=== PATIENT | male | born 1965 | race Caucasian/White ===

== ENCOUNTER 2016-06-22 17:35 | Emergency (ER) | payer BC ==
[2016-06-22 18:28] VITALS: BP 118/72
--- NOTE | 2016-06-22 19:33 | UC ---
Throat Pain/Nasal Ramon HPI - HPI Summary HPI Summary: 50 year old male with complaints of sinus pain and pressure, Ear pain and popping, nasal congestion, post nasal drip. States cold symptoms 10 days ago and improved. 5 days ago symptoms returned worse than before and are progressively getting worse. States fever on an off a few days ago. Denies cough, chest pain or difficulty breathing - History of Current Complaint Chief Complaint: UCGeneralIllness Stated Complaint: SORE THROAT FEVER Time Seen by Provider: 06/22/16 19:22 Hx Obtained From: Patient Onset/Duration: Gradual Onset, Lasting Days - 5, Worse Since - each day Severity: Moderate Cough: Nonproductive Associated Signs & Symptoms: Positive: Dysphagia, Sinus Discomfort, Nasal Discharge, Fever - has resolved. Negative: FB Sensation, Drooling, Wheezing, Hoarseness, Vomiting, Rash - Epiglottits Risk Factors Epiglottis Risk Factors: Negative - Allergies/Home Medications Allergies/Adverse Reactions: Allergies Allergy/AdvReac Type Severity Reaction Status Date / Time Codeine Allergy Severe Anaphylatic Verified 06/22/16 18:28 Shock environmental allergies Allergy Eyes Uncoded 06/22/16 18:28 Itchy/Swollen/Red/Watery PMH/Surg Hx/FS Hx/Imm Hx Previously Healthy: Yes Endocrine History Of: Denies: Diabetes Cardiovascular History Of: Denies: Hypertension, Pacemaker/ICD Respiratory History Of: Reports: Asthma - Surgical History Surgical History: None - Family History Known Family History: Positive: Respiratory Disease - mom Negative: Hypertension, Diabetes - Social History Occupation: Employed Full-time - [employer] Lives: With Family Alcohol Use: Rare Substance Use Type: None Smoking Status (MU): Former Smoker Type: Cigarettes, Cigars Amount Used/How Often: 5-10 CIGS PER DAY/ 2 cigars per day Have You Smoked in the Last Year: Yes Household Exposure Type: Cigarettes Cessation Counseling: Patient Advised to Stop - he states he has quit 30 days - Immunization History Most Recent Influenza Vaccination: no Review of Systems Constitutional: Fever, Chills Skin: Negative Eyes: Negative ENT: Sore Throat, Ear Ache, Nasal Discharge Respiratory: Cough Cardiovascular: Negative Gastrointestinal: Negative Genitourinary: Negative Motor: Negative Neurovascular: Negative Musculoskeletal: Negative Neurological: Headache - sinus Psychological: Negative All Other Systems Reviewed And Are Negative: Yes Physical Exam Triage Information Reviewed: Yes Appearance: No Pain Distress, Well-Nourished, Ill-Appearing - mildly Vital Signs: Initial Vital Signs Temp 98.4 F 06/22/16 18:23 Pulse 78 06/22/16 18:23 Resp 16 06/22/16 18:23 BP 118/72 06/22/16 18:23 Pulse Ox 98 06/22/16 18:23 Vital Signs Reviewed: Yes Eyes: Positive: Conjunctiva Clear. Negative: Discharge ENT: Positive: Hearing grossly normal, Pharyngeal erythema - mild with post nasal mucus, Nasal congestion, TMs normal, Other: - maxillary sinus pressure with palpation. Negative: Nasal drainage Neck: Positive: Supple, Nontender, No Lymphadenopathy Respiratory: Positive: Lungs clear, Normal breath sounds. Negative: Crackles, Wheezing Cardiovascular: Positive: RRR, No Murmur Musculoskeletal: Positive: Strength Intact, ROM Intact Neurological: Positive: Alert, Muscle Tone Normal Psychological: Positive: Age Appropriate Behavior - pleasant and cooperative Skin: Negative: rashes, breakdown Throat Pain/Nasal Course/Dx - Differential Dx/Diagnosis Differential Diagnosis/HQI/PQRI: Pharyngitis, Sinusitis, URI Provider Diagnoses: Sinusitis Discharge - Discharge Plan Condition: Stable Disposition: HOME Prescriptions: Amoxicillin/Clavulanate TAB* [Augmentin TAB 875*] 875 mg PO BID #20 tab Patient Education Materials: Sinusitis (ED), Amoxicillin/Clavulanate Potassium (By mouth)
== END 2016-06-22 19:40 | disposition home or self-care (01) ==
LOC: UCCORT 17:35
DX: J32.9 Chronic sinusitis, unspecified (principal); Z87.891 Personal history of nicotine dependence; Z88.5 Allergy status to narcotic agent
CPT/HCPCS: 99212; G0463

== ENCOUNTER 2016-09-22 18:15 | Emergency (ER) | payer BC ==
[2016-09-22 18:27] VITALS: BP 123/68
--- NOTE | 2016-09-22 18:38 | UC ---
Respiratory Complaint HPI - HPI Summary HPI Summary: The patient comes in today for: 1. Sinus congestion, fever of 102, coughing: Onset: "last couple of days." Palliative/provocative: Nothing makes his symptoms better or worse. Quality: Pressure Region: Frontal and maxillary sinuses Severity: 8/10 this AM, but 5/10 now. Time: Constant. Associated symptoms: Cough: Productive of clear material. Rhinitis: clear to yellow. Upper tooth pain: None. * - History of Current Complaint Chief Complaint: UCRespiratory Stated Complaint: SINUSES Time Seen by Provider: 09/22/16 18:24 Hx Obtained From: Patient - Allergies/Home Medications Allergies/Adverse Reactions: Allergies Allergy/AdvReac Type Severity Reaction Status Date / Time Codeine AdvReac Intermediate Tachycardia Verified 09/22/16 18:27 environmental allergies Allergy Eyes Uncoded 06/22/16 18:28 Itchy/Swollen/Red/Watery PMH/Surg Hx/FS Hx/Imm Hx Previously Healthy: Yes Endocrine History Of: Denies: Diabetes, Thyroid Disease, Hyperthyroidism, Hypothyroidism, Dyslipidemia Cardiovascular History Of: Reports: Cardiac Disorders - [place] 2012 Denies: Hypertension, Pacemaker/ICD, Myocardial Infarction, Congestive Heart Failure, Atrial Fibrillation, Deep Vein Thrombosis, Bleeding Disorders Respiratory History Of: Reports: Asthma Denies: COPD, Bronchitis, Pneumonia, Pulmonary Embolism GI/ History Of: Denies: Gastroesophageal Reflux, Ulcer, Gastrointestinal Bleed, Gall Bladder Disease, Kidney Stones, Diverticulitis, Renal Disease, Urosepsis Neurological History Of: Reports: Migraine Denies: TIA, CVA, Dementia, Seizures Psychological History Of: Denies: Anxiety, Depression, Bipolar Disorder, Schizophrenia, Post Traumatic Stress Disorder Cancer History Of: Denies: Lung Cancer, Colorectal Cancer, Breast Cancer, Prostate Cancer, Cervical Cancer Other History Of: Negative For: HIV, Hepatitis B, Hepatitis C, Anticoagulant Therapy - Surgical History Surgical History: None - Family History Known Family History: Positive: Cardiac Disease, Respiratory Disease - mom Negative: Hypertension, Diabetes - Social History Occupation: Employed Full-time Alcohol Use: Rare Substance Use Type: None Smoking Status (MU): Former Smoker Type: Cigarettes, Cigars Amount Used/How Often: 5-10 CIGS PER DAY/ 2 cigars per day Length of Time of Smoking/Using Tobacco: 43 yrs Have You Smoked in the Last Year: Yes When Did the Patient Quit Smoking/Using Tobacco: 05/19 Household Exposure Type: Cigarettes - Immunization History Most Recent Influenza Vaccination: no Review of Systems Constitutional: Negative Skin: Negative Eyes: Negative ENT: Sore Throat, Nasal Discharge Respiratory: Cough Cardiovascular: Negative Gastrointestinal: Negative Genitourinary: Negative All Other Systems Reviewed And Are Negative: Yes Physical Exam Triage Information Reviewed: Yes Appearance: Well-Appearing, No Pain Distress, Well-Nourished Vital Signs: Initial Vital Signs Temp 99.1 F 09/22/16 18:21 Pulse 82 09/22/16 18:21 Resp 16 09/22/16 18:21 BP 123/68 09/22/16 18:21 Pulse Ox 99 09/22/16 18:21 Vital Signs Reviewed: Yes Eyes: Positive: Conjunctiva Clear. Negative: Discharge ENT: Positive: Hearing grossly normal, Other: - cerumen buildup in both ears. Sinus pressure did elicit discomfort.. Negative: Pharyngeal erythema, Nasal congestion, Nasal drainage Dental: Negative: Gross Decay/Caries @, Dental Fracture @ Neck: Positive: Supple, Nontender, No Lymphadenopathy. Negative: Nuchal Rigidity Respiratory: Positive: Lungs clear, No respiratory distress, No accessory muscle use. Negative: Crackles, Wheezing Cardiovascular: Positive: RRR, No Murmur Abdomen Description: Positive: Nontender, No Organomegaly, Soft. Negative: Distended, Guarding Musculoskeletal: Positive: Strength Intact, ROM Intact, No Edema Neurological: Positive: Alert, Muscle Tone Normal Psychological: Positive: Age Appropriate Behavior, Consolable Skin: Negative: rashes, breakdown UC Diagnostic Evaluation - Laboratory O2 Sat by Pulse Oximetry: 99 Respiratory Course/Dx - Differential Dx/Diagnosis Differential Diagnosis/HQI/PQRI: Bronchitis, Laryngitis, Sinusitis Provider Diagnoses: Sinusitis. Bronchitis. Asthma Discharge - Discharge Plan Condition: Stable Disposition: HOME Patient Education Materials: Asthma (ED) Referrals: Gissell Stone MD [Primary Care Provider] - 1 Week (Please see your primary care provider in about one to two weeks to see how well you are doing. If you get worse, please be seen sooner.)
== END 2016-09-22 19:08 | disposition home or self-care (01) ==
LOC: UCCORT 18:15
DX: J32.9 Chronic sinusitis, unspecified (principal); J45.909 Unspecified asthma, uncomplicated; I21.3 ST elevation (STEMI) myocardial infarction of unspecified site; G43.909 Migraine, unspecified, not intractable, without status migrainosus; Z88.5 Allergy status to narcotic agent; Z87.891 Personal history of nicotine dependence
CPT/HCPCS: 99212; G0463

== ENCOUNTER 2017-03-03 17:08 | Emergency (ER) | payer BC ==
[2017-03-03 17:27] VITALS: BP 112/76
--- NOTE | 2017-03-03 18:49 | UC ---
Skin Complaint HPI - HPI Summary HPI Summary: Lower abd rash. It is very itchy and irritated. There is some clear drainage. No redness and no fevers. 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 - History of Current Complaint Chief Complaint: UCSkin Time Seen by Provider: 03/03/17 18:39 Stated Complaint: OPEN WOUND ABDOMEN Hx Obtained From: Patient Onset/Duration: Lasting Weeks Skin Exposure Onset/Duration: Weeks Ago Timing: Constant Onset Severity: Mild Current Severity: Moderate Location: Discrete Character: Pruritus Aggravating Factor(s): Wet Conditions, Touch Alleviating Factor(s): Nothing Associated Signs & Symptoms: Positive: Drainage - clear.. Negative: Fever, Chills, Tenderness - Allergy/Home Medications Allergies/Adverse Reactions: Allergies Allergy/AdvReac Type Severity Reaction Status Date / Time Codeine AdvReac Intermediate Tachycardia Verified 03/03/17 17:27 environmental allergies Allergy Eyes Uncoded 03/03/17 17:27 Itchy/Swollen/Red/Watery Review of Systems Skin: Rash All Other Systems Reviewed And Are Negative: Yes PMH/Surg Hx/FS Hx/Imm Hx Previously Healthy: Yes Other History Of: Negative For: HIV, Hepatitis B, Hepatitis C, Anticoagulant Therapy - Surgical History Surgical History: None - Family History Known Family History: Positive: Cardiac Disease, Respiratory Disease - mom Negative: Hypertension, Diabetes - Social History Alcohol Use: Rare Substance Use Type: None Smoking Status (MU): Former Smoker Type: Cigarettes, Cigars Amount Used/How Often: 5-10 CIGS PER DAY/ 2 cigars per day Length of Time of Smoking/Using Tobacco: 43 yrs Have You Smoked in the Last Year: Yes When Did the Patient Quit Smoking/Using Tobacco: 05/19 Household Exposure Type: Cigarettes - Immunization History Most Recent Influenza Vaccination: no Physical Exam Triage Information Reviewed: Yes Appearance: Well-Appearing, No Pain Distress, Well-Nourished Vital Signs: Initial Vital Signs Temp 98.1 F 03/03/17 17:22 Pulse 77 03/03/17 17:22 Resp 18 03/03/17 17:22 BP 112/76 03/03/17 17:22 Pulse Ox 99 03/03/17 17:22 Vital Signs Reviewed: Yes Eyes: Positive: Conjunctiva Clear ENT: Positive: Normal ENT inspection Neck: Positive: Supple, Nontender, No Lymphadenopathy Respiratory: Positive: Chest non-tender, Lungs clear, Normal breath sounds, No respiratory distress, No accessory muscle use Cardiovascular: Positive: RRR, No Murmur, Pulses Normal, Brisk Capillary Refill Abdomen Description: Positive: Nontender, No Organomegaly, Soft Musculoskeletal: Positive: Strength Intact, ROM Intact, No Edema Neurological: Positive: Alert, Muscle Tone Normal. Negative: Fatigued Skin: Positive: rashes - just at the level of the belt is a pink salmon colored patch of macular papular clear drainage rash without streaking. Course/Dx - Diagnoses Provider Diagnoses: bell sensitivity. contact dermatitis. Discharge - Discharge Plan Condition: Good Disposition: HOME Prescriptions: Triamcinolone 0.5% OINT * 1 applic TOPICAL BID #15 tube Patient Education Materials: Contact Dermatitis (ED) Referrals: Gissell Stone MD [Primary Care Provider] - If Needed
== END 2017-03-03 18:54 | disposition home or self-care (01) ==
LOC: UCCORT 17:08
DX: L23.0 Allergic contact dermatitis due to metals (principal); Z88.5 Allergy status to narcotic agent; Z87.891 Personal history of nicotine dependence
CPT/HCPCS: 99212; G0463

== ENCOUNTER 2017-04-16 14:51 | Emergency (ER) | payer BC ==
[2017-04-16 15:56] VITALS: BP 125/77
--- NOTE | 2017-04-16 17:26 | UC ---
Respiratory Complaint HPI - HPI Summary HPI Summary: 51 y/o male presents to the urgent care c/o sore throat , nasal congestion with productive cough and REINA since yesterday. Pt reports he has Hx of Migraine REINA and he run out of his Imitrex. Pt states pain with swallowing is 8/10. He took Tylenol PO about 2 hrs ago. Pt denies fever, SOB, chest pain , abdominal pain, dizziness, N/V/D - History of Current Complaint Chief Complaint: UCHeadache Stated Complaint: CHEST CONGESTION, AND SORE THROAT Time Seen by Provider: 04/16/17 17:15 Hx Obtained From: Patient Onset/Duration: Gradual Onset, Lasting Days - 1 day, Still Present Timing: Constant Severity Initially: Mild Severity Currently: Moderate Pain Intensity: 8 - sore throat Pain Scale Used: 0-10 Numeric Character: Cough: Productive - yellowish Aggravating Factors: Nothing Alleviating Factors: OTC Meds Associated Signs And Symptoms: Positive: Nasal Congestion, Sinus Discomfort. Negative: Fever, Wheezing - Risk Factors Pulmonary Embolism Risk Factors: Negative Cardiac Risk Factors: Negative Pseudomonas Risk Factors: Negative Tuberculosis Risk Factors: Negative - Allergies/Home Medications Allergies/Adverse Reactions: Allergies Allergy/AdvReac Type Severity Reaction Status Date / Time Codeine AdvReac Intermediate Tachycardia Verified 04/16/17 15:57 environmental allergies Allergy Eyes Uncoded 04/16/17 15:57 Itchy/Swollen/Red/Watery PMH/Surg Hx/FS Hx/Imm Hx Previously Healthy: Yes Cardiovascular History: Myocardial Infarction Other History Of: Negative For: HIV, Hepatitis B, Hepatitis C, Anticoagulant Therapy - Surgical History Surgical History: None - Family History Known Family History: Positive: Cardiac Disease, Hypertension, Diabetes, Respiratory Disease - mom - Social History Occupation: Employed Full-time Lives: With Family Alcohol Use: None Substance Use Type: None Smoking Status (MU): Light Every Day Tobacco Smoker Type: Cigarettes, Cigars Amount Used/How Often: 5-10 CIGS PER DAY/ 2 cigars per day Length of Time of Smoking/Using Tobacco: 43 yrs Have You Smoked in the Last Year: Yes When Did the Patient Quit Smoking/Using Tobacco: 05/19 Household Exposure Type: Cigarettes - Immunization History Most Recent Influenza Vaccination: no Review of Systems Constitutional: Negative Skin: Negative Eyes: Negative ENT: Sore Throat, Nasal Discharge, Sinus Congestion Respiratory: Cough Cardiovascular: Negative Gastrointestinal: Negative Genitourinary: Negative Motor: Negative Neurovascular: Negative Musculoskeletal: Negative Neurological: Headache Psychological: Negative Is Patient Immunocompromised?: No All Other Systems Reviewed And Are Negative: Yes Physical Exam Triage Information Reviewed: Yes Vital Signs: Initial Vital Signs Temp 97.3 F 04/16/17 15:54 Pulse 74 04/16/17 15:54 Resp 12 04/16/17 15:54 BP 125/77 04/16/17 15:54 Pulse Ox 99 04/16/17 15:54 - Additional Comments VITAL SIGNS: Reviewed. GENERAL: Patient is a well developed and nourished male who is sitting comfortable in the examining table. Patient is not in any acute respiratory distress. HEAD AND FACE: No signs of trauma. No ecchymosis, hematomas or skull depressions. No sinus tenderness. edematous erythematous nasal mucosa with yellowish discharge, EYES: PERRLA, EOMI x 2, No injected conjunctiva, clear watery eyes, no nystagmus. No photophobia. EARS: Hearing grossly intact. Ear canals and tympanic membranes are within normal limits. MOUTH: Positive pharynx with erythema, no exudates,no palatal petechiae. no B/ L tonsillar enlargement Uvula in midline. NECK: Supple, trachea is midline, Positive anterior cervical lymphadenopathy, no JVD, no carotid bruit, no c-spine tenderness, neck with full ROM. No meningeal signs, no Kernig's or brudzinskis signs. CHEST: Symmetric, no tenderness at palpation LUNGS: Clear to auscultation bilaterally. No wheezing or crackles. CVS: Regular rate and rhythm, S1 and S2 present, no murmurs or gallops appreciated. ABDOMEN: Soft, non-tender. No signs of distention. No rebound no guarding, and no masses palpated. Bowel sounds are normal. EXTREMITIES: FROM in all major joints, no edema, no cyanosis or clubbing. NEURO: Alert and oriented x 3. No acute neurological deficits. Speech is normal and follows commands. SKIN: Dry and warm UC Diagnostic Evaluation - Laboratory O2 Sat by Pulse Oximetry: 99 Respiratory Course/Dx - Course Course Of Treatment: 51 y/o male presents to the urgent care c/o sore throat , nasal congestion with productive cough and REINA since yesterday. Pt reports he has Hx of Migraine REINA and he run out of his Imitrex. Pt states pain with swallowing is 8/10. He took Tylenol PO about 2 hrs ago. Pt denies fever, SOB, chest pain , abdominal pain, dizziness, N/V/D. Hx obtained. Pt with an upper respiratory infection on examiantion. Rapid Strep: negative, Influenza A&B negative. PT Rx Imitrex PO to alleviate his Migraine REINA and strongly advised to f/u with his PCP for further evaluation and treatment. Advised on hand washing to avoid spreading. Pt advised to rest, eat well and avoid strenuous exercise. If symptoms do not improve or worsen advised to return to the urgent care or f/ u with her PCP for further evaluation and treatment. Pt understood and agreed with D/C instructions. - Differential Dx/Diagnosis Differential Diagnosis/HQI/PQRI: Asthma, Bronchitis, Laryngitis, Lower Resp Infection, Sinusitis, Other - pharyngitis, URI Provider Diagnoses: 1- Upper respiratory infection. 2- Migraine Headache Discharge - Discharge Plan Condition: Stable Disposition: HOME Prescriptions: SUMAtriptan TAB* [Imitrex TAB*] 50 mg PO DAILY PRN #10 tab PRN Reason: Headache Patient Education Materials: Migraine Headache (ED), Upper Respiratory Infection (ED) Forms: *Work Release Referrals: Gissell Stone MD [Primary Care Provider] - 3 Days Additional Instructions: 1-Please take Imitrex as directed to alleviate Headache. Increase fluid intake, eat well, rest and avoid strenuous exercise 2- Use saline drops or sprays to clear your sinuses 3-Please f/u with your PCP for further evaluation and treatment on your Migraine REINA
== END 2017-04-16 18:25 | disposition home or self-care (01) ==
LOC: UCEAST 14:51
DX: J06.9 Acute upper respiratory infection, unspecified (principal); G43.909 Migraine, unspecified, not intractable, without status migrainosus; I25.2 Old myocardial infarction; Z88.5 Allergy status to narcotic agent
CPT/HCPCS: 87502; 87651; 99212; G0463

== ENCOUNTER 2017-09-05 16:56 | Emergency (ER) | payer BC ==
[2017-09-05 17:30] VITALS: BP 128/78
--- NOTE | 2017-09-05 17:51 | UC ---
Ear Complaint HPI - HPI Summary HPI Summary: C/O bilateral ear pain x 1 week with congestion and sinus pain. No fevers. Does smoke. Positive cough. - History of Current Complaint Chief Complaint: UCEar Time Seen by Provider: 09/05/17 17:42 Hx Obtained From: Patient Onset/Duration: Sudden Onset, Lasting Weeks - 1, Still Present Severity Initially: Moderate Severity Currently: Moderate Pain Intensity: 8 Related History: Seasonal Allergies, Smoking - Allergies/Home Medications Allergies/Adverse Reactions: Allergies Allergy/AdvReac Type Severity Reaction Status Date / Time codeine Allergy Tachycardia Verified 09/05/17 17:32 environmental allergies Allergy Eyes Uncoded 09/05/17 17:32 Itchy/Swollen/Red/Watery PMH/Surg Hx/FS Hx/Imm Hx Cardiovascular History: Cardiac Disease Respiratory History: Asthma Other History Of: Negative For: HIV, Hepatitis B, Hepatitis C, Anticoagulant Therapy - Surgical History Surgical History: None - Family History Known Family History: Positive: Cardiac Disease, Hypertension, Diabetes, Respiratory Disease - mom - Social History Occupation: Employed Full-time Lives: With Family Alcohol Use: None Substance Use Type: None Smoking Status (MU): Light Every Day Tobacco Smoker Type: Cigarettes, Cigars Amount Used/How Often: 5-10 CIGS PER DAY/ 2 cigars per day Length of Time of Smoking/Using Tobacco: 43 yrs Have You Smoked in the Last Year: Yes When Did the Patient Quit Smoking/Using Tobacco: 05/19 Household Exposure Type: Cigarettes - Immunization History Most Recent Influenza Vaccination: no Review of Systems ENT: Ear Ache, Nasal Discharge Respiratory: Cough Is Patient Immunocompromised?: No All Other Systems Reviewed And Are Negative: Yes Physical Exam Triage Information Reviewed: Yes Appearance: Well-Appearing, No Pain Distress, Well-Nourished Vital Signs: Initial Vital Signs Temp 98.4 F 09/05/17 17:27 Pulse 78 09/05/17 17:27 Resp 16 09/05/17 17:27 BP 128/78 09/05/17 17:27 Pulse Ox 99 09/05/17 17:27 Vital Signs Reviewed: Yes ENT: Positive: Pharynx normal. Negative: TMs normal - bilateral cerumen impaction. Neck: Positive: Tenderness @ - left SCM muscle Respiratory: Positive: Wheezing - expiratory wheeze with coughing. Cardiovascular Exam: Normal Musculoskeletal Exam: Normal Neurological Exam: Normal Psychological Exam: Normal Skin Exam: Normal Re-Evaluation - Re-Evaluation First Eval Re-Evaluation Time: 18:16 Change: Improved - Able to hear much better. TM's are normal Ear Complaint Course/Dx - Differential Dx/Diagnosis Differential Diagnosis/HQI/PQRI: Cerumen Impaction, Otitis Externa, URI Provider Diagnoses: Cerumen impaction. Acute URI. Smoking Discharge - Sign-Out/Discharge Documenting (check all that apply): Discharge/Admit/Transfer - Discharge Plan Condition: Stable Disposition: HOME Patient Education Materials: Cerumen Impaction (ED), Upper Respiratory Infection (ED) Referrals: Gissell Stone MD [Primary Care Provider] - Additional Instructions: Smoking Cessation Tricks. 1. Cut down by 1 cigarette per day every 2-3 days. Write the number of smokes for that day on the calendar. 2. Identify triggers to smoking: after meals, on the phone, in the car, with coffee, on breaks at work, etc. 3. Formulate a plan with a behavior to replace the smoking. Fireballs in the car , doodle pad on the phone, flavored creamer for the coffee, go for a walk after a meal or on break at work. 4. For stress smokes do deep breathing relaxation. Breath deep in through the nose hold the breath in for a few seconds then breath out slowly through the mouth. - Billing Disposition and Condition Condition: STABLE Disposition: HOME
== END 2017-09-05 18:23 | disposition home or self-care (01) ==
LOC: UCCORT 16:56
DX: H61.23 Impacted cerumen, bilateral (principal); J06.9 Acute upper respiratory infection, unspecified; F17.210 Nicotine dependence, cigarettes, uncomplicated; F17.290 Nicotine dependence, other tobacco product, uncomplicated; Z88.5 Allergy status to narcotic agent
CPT/HCPCS: 99213; G0463

== ENCOUNTER 2018-02-05 16:19 | Emergency (ER) | payer BC ==
[2018-02-05] MEDS ORDERED: Fluconazole 150 MG (NF) 150 MG TAB PO ONE (16:52)
--- NOTE | 2018-02-05 16:56 | ED ---
Allergic Reaction/Systemic - HPI Summary HPI Summary: This patient is a 52 year old M presenting to [facility] with a chief complaint of erythema on his waistband for months. Patient was seen and treated by multiple PCPs but it has not resolved. Pt states prescribed cortisone did not help and might make it worse. Pt states that the rash was purulent when applying peroxide. Pt states that wearing jeans has made it worse. - History of Current Complaint Chief Complaint: EDRashSkinAbscess Time Seen by Provider: 02/05/18 16:39 Hx Obtained From: Patient Onset/Duration: Started weeks ago, Still Present Severity Initially: Mild Severity Currently: Mild Pain Intensity: 7 Pain Scale Used: 0-10 Numeric Location: Diffuse - Anterior waistband Associated Signs And Symptoms: Positive: Rash - Anterior waistband - Allergies/Home Medications Allergies/Adverse Reactions: Allergies Allergy/AdvReac Type Severity Reaction Status Date / Time codeine Allergy Tachycardia Verified 02/05/18 16:30 PMH/Surg Hx/FS Hx/Imm Hx Endocrine/Hematology History: Denies: Hx Anticoagulant Therapy, Hx Diabetes, Hx Thyroid Disease Cardiovascular History: Denies: Hx Congestive Heart Failure, Hx Deep Vein Thrombosis, Hx Hypertension , Hx Myocardial Infarction, Hx Pacemaker/ICD Respiratory History: Reports: Hx Asthma Denies: Hx Chronic Obstructive Pulmonary Disease (COPD), Hx Lung Cancer, Hx Pneumonia, Hx Pulmonary Embolism GI History: Denies: Hx Gall Bladder Disease, Hx Gastrointestinal Bleed, Hx Ulcer, Hx Urosepsis History: Denies: Hx Kidney Stones, Hx Renal Disease Sensory History: Denies: Hx Hearing Aid Neurological History: Reports: Hx Migraine Denies: Hx Dementia, Hx Seizures, Hx Transient Ischemic Attacks (TIA) Psychiatric History: Denies: Hx Anxiety, Hx Depression, Hx Panic Disorder, Hx Schizophrenia, Hx Bipolar Disorder Infectious Disease History: No Infectious Disease History: Denies: Traveled Outside the [place] in Last 30 Days - Family History Known Family History: Positive: Cardiac Disease, Hypertension, Diabetes, Respiratory Disease - mom - Social History Alcohol Use: None Substance Use Type: Reports: None Smoking Status (MU): Former Smoker Type: Cigarettes, Cigars Amount Used/How Often: 5-10 CIGS PER DAY/ 2 cigars per day Length of Time of Smoking/Using Tobacco: 43 yrs Have You Smoked in the Last Year: Yes Review of Systems Negative: Fever Negative: Chest Pain Negative: Shortness Of Breath Positive: Rash - Anterior waistband All Other Systems Reviewed And Are Negative: Yes Physical Exam - Summary Physical Exam Summary: Appearance: Well appearing, no pain distress Skin: warm, dry, reflects adequate perfusion. Errythemous plaque anterior waistband with tiny satellite lesions. Head/face: normal Eyes: EOMI, MATTEO. Exotropia of right eye. ENT: mucous membranes moist Neck: supple, non-tender Respiratory: CTA, breath sounds present Cardiovascular: RRR, pulses symmetrical Abdomen: non-tender, soft Bowel Sounds: present Musculoskeletal: normal, strength/ROM intact Neuro: normal, sensory motor intact, A&Ox3 Triage Information Reviewed: Yes Vital Signs On Initial Exam: Initial Vitals Temp Pulse Resp BP Pulse Ox 98 F 89 16 135/83 98 02/05/18 16:21 02/05/18 16:21 02/05/18 16:21 02/05/18 16:21 02/05/18 16:21 Vital Signs Reviewed: Yes Diagnostics - Vital Signs Vital Signs Temp Pulse Resp BP Pulse Ox 02/05/18 16:21 98 F 89 16 135/83 98 - Laboratory Lab Statement: Any lab studies that have been ordered have been reviewed, and results considered in the medical decision making process. Allergic Reaction Course/Dx - Course Course Of Treatment: Patient has midline anterior abdominal wall erythema that appears eczematous. He states that he previously put hydrocortisone on it but it didn't get better. This to me looks like a nickel allergy and he states that it gets worse when he wears jeans as opposed to slacks. I will give him a Diflucan here and night time antifungal topical however I suggest he use hydrocortisone up to twice a day and cover any nickel that may be touching his skin. - Diagnoses Differential Diagnosis/HQI/PQRI: Positive: Local Allergic Reaction, Other - Fungal Provider Diagnoses: Contact dermatitis Discharge - Sign-Out/Discharge Documenting (check all that apply): Patient Departure - Discharge - Discharge Plan Condition: Stable Disposition: HOME Prescriptions: Nystatin CREAM* [Nystatin Cream*] 1 applic TOPICAL DAILY #1 tube Patient Education Materials: Contact Dermatitis (ED) Referrals: Gissell Stone MD [Primary Care Provider] - Additional Instructions: Hydrocortisone ointment twice daily. Cover any nuchal that may be touching her skin. Return if worse, new symptoms or other concerns. - Billing Disposition and Condition Condition: STABLE Disposition: Home - Attestation Statements Document Initiated by Lisetteibe: Yes Documenting Scribe: Marcus Hancock Provider For Whom Reji is Documenting (Include Credential): John Quinn MD Scribe Attestation: Marcus Zaman, scribed for John Quinn MD on 02/05/18 at 1720. Scribe Documentation Reviewed: Yes Provider Attestation: The documentation as recorded by the Marcus broussard accurately reflects the service I personally performed and the decisions made by me, John Quinn MD
[2018-02-05] MEDS ORDERED: Fluconazole 100 MG TAB* TAB PO ONE (17:00)
[2018-02-05 17:12] VITALS: BP 144/93
== END 2018-02-05 17:13 | disposition home or self-care (01) ==
LOC: ED 16:19
DX: L25.9 Unspecified contact dermatitis, unspecified cause (principal); F17.210 Nicotine dependence, cigarettes, uncomplicated
CPT/HCPCS: 99282; A9270-GY

== ENCOUNTER 2018-03-01 15:06 | Emergency (ER) | payer BC ==
[2018-03-01 15:29] VITALS: BP 117/74
[2018-03-01] MEDS ORDERED: predniSONE TAB* 50 MG PO ONE (15:54)
--- NOTE | 2018-03-01 15:59 | UC ---
Shortness of Breath HPI - HPI Summary HPI Summary: 52 yo M, hx of COPD, c/o cough, SOB and "rattling in chest" for several days. No overt fever but "feels like fever wants to come on." No associated CP, body aches or difficulty breathing. He's been using his albuterol inhaler but did not have any improvement with use today. Patient medications reviewed this visit - History of Current Complaint Chief Complaint: UCRespiratory Stated Complaint: COUGH,CONGESTION Time Seen by Provider: 03/01/18 15:45 Hx Obtained From: Patient Onset/Duration: Lasting Days Timing: Constant Current Severity: Mild Aggrevating Factors: Deep Breaths Alleviating Factors: Bronchodilators - Allergy/Home Medications Allergies/Adverse Reactions: Allergies Allergy/AdvReac Type Severity Reaction Status Date / Time codeine Allergy Tachycardia Verified 03/01/18 15:29 PMH/Surg Hx/FS Hx/Imm Hx Respiratory History: COPD Other History Of: Negative For: HIV, Hepatitis B, Hepatitis C, Anticoagulant Therapy - Surgical History Surgical History: None - Family History Known Family History: Positive: Cardiac Disease, Hypertension, Diabetes, Respiratory Disease - mom Family History: non-contributory - Social History Alcohol Use: None Substance Use Type: None Smoking Status (MU): Former Smoker Type: Cigarettes, Cigars Amount Used/How Often: 5-10 CIGS PER DAY/ 2 cigars per day Length of Time of Smoking/Using Tobacco: 43 yrs Have You Smoked in the Last Year: Yes When Did the Patient Quit Smoking/Using Tobacco: 05/19 Household Exposure Type: Cigarettes - Immunization History Most Recent Influenza Vaccination: no Review of Systems Eyes: Negative ENT: Negative Respiratory: Shortness Of Breath, Cough Cardiovascular: Negative Gastrointestinal: Negative Motor: Negative All Other Systems Reviewed And Are Negative: Yes Physical Exam Triage Information Reviewed: Yes Appearance: Well-Appearing, No Pain Distress, Thin Vital Signs: Initial Vital Signs Temp 98.6 F 03/01/18 15:26 Pulse 92 03/01/18 15:26 Resp 18 03/01/18 15:26 BP 117/74 03/01/18 15:26 Pulse Ox 98 03/01/18 15:26 Vital Signs Reviewed: Yes Eyes: Positive: Conjunctiva Clear Respiratory: Positive: Lungs clear, Normal breath sounds, No respiratory distress, No accessory muscle use Cardiovascular Exam: Normal Skin Exam: Normal Diagnostics - Radiology No standard instances Radiology Interpretation Completed By: ED Physician - No acute pathology - EKG Cardiac Rate: NL Cardiac Rhythm: Sinus: Normal ST Segment: Normal - J point elevation Re-Evaluation - Re-Evaluation First Eval Re-Evaluation Time: 05:05 - patient feels improved Shortness of Breath Dx - Course Course Of Treatment: cough and SOB suggestive of COPD exacerbation. will check CXR and EKG (screening), give prednisone and duo-neb - Differential Dx/Diagnosis Provider Diagnoses: Bronchitis Discharge - Sign-Out/Discharge Documenting (check all that apply): Patient Departure All imaging exams completed and their final reports reviewed: No - Discharge Plan Condition: Stable Disposition: HOME Patient Education Materials: Acute Bronchitis (ED) Referrals: Gissell Stone MD [Primary Care Provider] - - Billing Disposition and Condition Condition: STABLE Disposition: Home
[2018-03-01] MEDS ORDERED: predniSONE TAB* 10 MG ONE (16:40)
[2018-03-01] MEDS ORDERED: predniSONE TAB* 10 MG PO ONE (16:44)
--- NOTE | 2018-03-01 17:08 | RAD ---
INDICATION: Cough, shortness breath, COPD COMPARISON: February 22, 2009 CT abdomen. July 23, 2008 radiographs. TECHNIQUE: Dual energy PA and routine lateral views of the chest were obtained. REPORT: Elevated lung volumes and mild prominence of interstitial markings without change. No focal pulmonary lesion, compelling alveolar consolidation, pleural effusion, pneumothorax. The heart, pulmonary vasculature, and mediastinal contours are unremarkable. IMPRESSION: #. Stigmata of obstructive lung disease. No acute pulmonary or cardiac process evident.
--- NOTE | 2018-03-01 18:24 | UC ---
- Progress Note Progress Note: Patient Name: HUDSON COLE Medical Record#: [id number] Ordering Physician: Vickie Orr MD Acct.#: [id number] : 1965 Age: 52 Sex: M Location: [facility] Exam Date: 03/01/18 1552 ADM Status: REG ER Order Information: CHEST PA & LAT 2 VWS Accession Number: [id number] CPT: 21044 INDICATION: Cough, shortness breath, COPD COMPARISON: February 22, 2009 CT abdomen. July 23, 2008 radiographs. TECHNIQUE: Dual energy PA and routine lateral views of the chest were obtained. REPORT: Elevated lung volumes and mild prominence of interstitial markings without change. No focal pulmonary lesion, compelling alveolar consolidation, pleural effusion, pneumothorax. The heart, pulmonary vasculature, and mediastinal contours are unremarkable. IMPRESSION: #. Stigmata of obstructive lung disease. No acute pulmonary or cardiac process evident. <Electronically signed by Daniel Tello MD in [place]> 03/01/181704 Dictated By: Daniel Tello MD Dictated Date/Time: 03/01/181704 Transcribed Date/Time: 03/01/181702 Copy to: CC:Gissell Stone MD; Vickie Orr MD Imaging - [facility] Imaging - [facility] Urgent [facility] [address] [place] [address] ph ([phone]) ph ([phone]) ph ([phone]) This report is only to be considered final once signed by the Provider(s) as displayed in the "<Electronically Signed by >" field (s). Absence of a signature indicates the report is in a draft status and still needs to be finalized. In the event this document was created by someone other than the signing Provider, the individual initiating the document will be listed in the "Entered by:" or "Dictated by:" clinton. 1 of 1 Re-Evaluation - Re-Evaluation First Eval Re-Evaluation Time: 05:05 - patient feels improved Discharge - Sign-Out/Discharge Documenting (check all that apply): Post-Discharge Follow Up All imaging exams completed and their final reports reviewed: Yes - Discharge Plan Condition: Stable Disposition: HOME Prescriptions: predniSONE TAB* [Deltasone TAB*] 50 mg PO DAILY #4 tab Patient Education Materials: Acute Bronchitis (ED) Forms: *Work Release Referrals: Gissell Stone MD [Primary Care Provider] - - Billing Disposition and Condition Condition: STABLE Disposition: Home
== END 2018-03-01 17:19 | disposition home or self-care (01) ==
LOC: UCEAST 15:06
DX: J40 Bronchitis, not specified as acute or chronic (principal); Z88.5 Allergy status to narcotic agent; Z87.891 Personal history of nicotine dependence
CPT/HCPCS: 71046; 93005; 99212; G0463; J7512

== ENCOUNTER 2018-03-18 17:55 | Emergency (ER) | payer BC ==
[2018-03-18 19:09] VITALS: BP 124/67
--- NOTE | 2018-03-18 19:59 | UC ---
Shoulder Pain HPI - HPI Summary HPI Summary: Pt c/o sudden onset of right shoulder and upper back pain that radiates to distal hand and fingers 4 and 5. Pt denies injury. Does report that he was doing house work 4 days ago with a lot reaching. - History of Current Complaint Chief Complaint: UCGeneralIllness Stated Complaint: RIGHT SHOULDER PAIN Time Seen by Provider: 03/18/18 19:12 Hx Obtained From: Patient Onset/Duration: Sudden Onset, Lasting Days, Still Present Timing: Constant Severity Initially: Moderate Severity Currently: Moderate Location Of Pain: Is Discrete @ - right upper back and shoulder Pain Intensity: 8 Character: Sharp, Dull, Aching Aggravating Factor(s): Movement Alleviating Factor(s): Rest Associated Signs And Symptoms: Positive: Negative Related History: Dominant Hand Right - Risk Factors Non-Orthopedic Risk Factor: Negative DVT Risk Factors: Negative Septic Arthritis Risk Factor: Negative - Allergies/Home Medications Allergies/Adverse Reactions: Allergies Allergy/AdvReac Type Severity Reaction Status Date / Time codeine Allergy Tachycardia Verified 03/18/18 19:03 Home Medications: Home Medications Acetaminophen [Tylenol Extra Strength] 1,000 mg PO Q6H PRN 03/18/18 [History Confirmed 03/18/18] Albuterol HFA INHALER* [Ventolin HFA Inhaler*] 2 puff INH Q6H PRN 03/18/18 [ History Confirmed 03/18/18] PMH/Surg Hx/FS Hx/Imm Hx Previously Healthy: Yes Other History Of: Negative For: HIV, Hepatitis B, Hepatitis C, Anticoagulant Therapy - Surgical History Surgical History: None - Family History Known Family History: Positive: Cardiac Disease, Hypertension, Diabetes, Respiratory Disease - mom Family History: non-contributory - Social History Occupation: Employed Full-time Lives: With Family Alcohol Use: None Substance Use Type: None Smoking Status (MU): Former Smoker Type: Cigarettes, Cigars Amount Used/How Often: 5-10 CIGS PER DAY/ 2 cigars per day Length of Time of Smoking/Using Tobacco: 43 yrs Have You Smoked in the Last Year: Yes When Did the Patient Quit Smoking/Using Tobacco: 05/19 Household Exposure Type: Cigarettes - Immunization History Most Recent Influenza Vaccination: no Review of Systems All Other Systems Reviewed And Are Negative: Yes Constitutional: Positive: Negative Skin: Positive: Negative Eyes: Positive: Negative ENT: Positive: Negative Respiratory: Positive: Negative Cardiovascular: Positive: Negative Gastrointestinal: Positive: Negative Genitourinary: Positive: Negative Motor: Positive: Negative Neurovascular: Positive: Negative Musculoskeletal: Positive: Myalgia Neurological: Positive: Negative Psychological: Positive: Negative Is Patient Immunocompromised?: No Physical Exam Triage Information Reviewed: Yes Appearance: Well-Appearing Vital Signs: Initial Vital Signs Temp 98.2 F 03/18/18 19:04 Pulse 94 03/18/18 19:04 Resp 20 03/18/18 19:04 BP 124/67 03/18/18 19:04 Pulse Ox 97 03/18/18 19:04 Vital Signs Reviewed: Yes Eye Exam: Normal Eyes: Positive: Other: - right eye strabisumus Neck exam: Normal Respiratory: Positive: No respiratory distress Musculoskeletal: Positive: Other: - trigger point tenderness, right upper back, Neurological Exam: Normal Psychological Exam: Normal Skin Exam: Normal Shoulder Course/Dx - Differential Dx/Diagnosis Differential Diagnosis/HQI/PQRI: Arthritis, Bursitis, Sprain Provider Diagnoses: right upper back trigger point tenderness. right shoulder tendinitis Discharge - Sign-Out/Discharge Documenting (check all that apply): Patient Departure All imaging exams completed and their final reports reviewed: No Studies - Discharge Plan Condition: Stable Disposition: HOME Patient Education Materials: Trigger Point Pain (ED) Forms: *Work Release Referrals: Gissell Stone MD [Primary Care Provider] - If Needed - Billing Disposition and Condition Condition: STABLE Disposition: Home
== END 2018-03-18 20:05 | disposition home or self-care (01) ==
LOC: UCCORT 17:55
DX: M75.91 Shoulder lesion, unspecified, right shoulder (principal); Z88.5 Allergy status to narcotic agent; Z87.891 Personal history of nicotine dependence
CPT/HCPCS: 99211; G0463

== ENCOUNTER → 2018-03-21 20:38 | Emergency (ER) | payer BC ==
--- NOTE | 2018-03-21 21:04 | ED ---
Respiratory - HPI Summary HPI Summary: Pt. is a 52 y/o male who presents to the ER for productive cough and congestion x 1 week. Hx of COPD and current smoker. He states he ran out of his albuterol inhaler. Pt.'s is being seen tonight for similar sxs. He notes intermittent fever and chills. Denies CP or SOB. Sxs are mild in severity in NAD. Activity makes sxs worse. Rest makes sxs better. - History of Current Complaint Chief Complaint: EDUpperRespComplaint Stated Complaint: COUGH/CONGESTION Time Seen by Provider: 03/21/18 20:55 Hx Obtained From: Patient Pain Intensity: 8 - Allergy/Home Medications Allergies/Adverse Reactions: Allergies Allergy/AdvReac Type Severity Reaction Status Date / Time codeine Allergy Tachycardia Verified 03/18/18 19:03 PMH/Surg Hx/FS Hx/Imm Hx Previously Healthy: Yes Endocrine/Hematology History: Denies: Hx Anticoagulant Therapy, Hx Diabetes, Hx Thyroid Disease Cardiovascular History: Denies: Hx Congestive Heart Failure, Hx Deep Vein Thrombosis, Hx Hypertension , Hx Myocardial Infarction, Hx Pacemaker/ICD Respiratory History: Reports: Hx Asthma Denies: Hx Chronic Obstructive Pulmonary Disease (COPD), Hx Lung Cancer, Hx Pneumonia, Hx Pulmonary Embolism GI History: Denies: Hx Gall Bladder Disease, Hx Gastrointestinal Bleed, Hx Ulcer, Hx Urosepsis History: Denies: Hx Kidney Stones, Hx Renal Disease Sensory History: Denies: Hx Hearing Aid Neurological History: Reports: Hx Migraine Denies: Hx Dementia, Hx Seizures, Hx Transient Ischemic Attacks (TIA) Psychiatric History: Denies: Hx Anxiety, Hx Depression, Hx Panic Disorder, Hx Schizophrenia, Hx Bipolar Disorder Infectious Disease History: No Infectious Disease History: Denies: Traveled Outside the [place] in Last 30 Days - Family History Known Family History: Positive: Cardiac Disease, Hypertension, Diabetes, Respiratory Disease - mom Family History: non-contributory - Social History Occupation: Employed Full-time Lives: With Family Alcohol Use: None Substance Use Type: Reports: None Smoking Status (MU): Former Smoker Type: Cigarettes, Cigars Amount Used/How Often: 5-10 CIGS PER DAY/ 2 cigars per day Length of Time of Smoking/Using Tobacco: 43 yrs Have You Smoked in the Last Year: Yes Review of Systems Positive: Fever, Chills Positive: Nasal Discharge Cardiovascular: Negative Negative: Palpitations, Chest Pain Positive: Shortness Of Breath, Cough Neurological: Negative All Other Systems Reviewed And Are Negative: Yes Physical Exam Triage Information Reviewed: Yes Vital Signs On Initial Exam: Initial Vitals Temp Pulse Resp BP Pulse Ox 97.6 F 93 16 142/80 97 03/21/18 20:40 03/21/18 20:40 03/21/18 20:40 03/21/18 20:40 03/21/18 20:40 Vital Signs Reviewed: Yes Appearance: Positive: Well-Appearing - Pt. sitting up in bed in NAD. present. Very talkative. Skin: Positive: Warm, Dry Head/Face: Positive: Normal Head/Face Inspection Eyes: Positive: Normal, EOMI ENT: Positive: Pharynx normal, TMs normal Neck: Positive: Supple, Nontender. Negative: Nuchal Rigidity Respiratory/Lung Sounds: Positive: Clear to Auscultation, Breath Sounds Present. Negative: Rales, Rhonchi, Stridor, Wheezes Cardiovascular: Positive: Normal, RRR Neurological: Positive: Normal, CN Intact II-III Psychiatric: Positive: Affect/Mood Appropriate Diagnostics - Vital Signs Vital Signs Temp Pulse Resp BP Pulse Ox 03/21/18 20:40 97.6 F 93 16 142/80 97 - Laboratory Lab Statement: Any lab studies that have been ordered have been reviewed, and results considered in the medical decision making process. Disposition - Course Course Of Treatment: Pt. presenting for cough and nasal congestion x 1 week. He is afebrile and well appearing. O2 saturation is 97% on RA which normal. CXR is negative for infiltrate or acute change. Will refill albuteral and place on a course of prednisone. Advised to stop smoking. To call PCP tomorrow for a f.u apt. To return to ER if sxs change or worsen. Pt. understands and agrees with plan. - Differential Dx - Cardiopulmonary Differential Diagnoses - Cardiopulmonary: Bronchitis, Lower Resp Infection, Sinusitis - Diagnoses Provider Diagnoses: Bronchitis Discharge - Sign-Out/Discharge Documenting (check all that apply): Patient Departure - Discharge Plan Condition: Good Disposition: HOME Prescriptions: Albuterol HFA INHALER* [Ventolin HFA Inhaler*] 1 puff INH Q4H PRN #1 mdi PRN Reason: Wheezing predniSONE TAB* [Deltasone 20 MG TAB*] 40 mg PO DAILY #10 tab Patient Education Materials: How to Stop Smoking (ED), Acute Bronchitis (ED) Referrals: Gissell Stone MD [Primary Care Provider] - Additional Instructions: Call your PCP tomorrow for a follow up appointment Take medication as directed Stop smoking Return to ER if symptoms change or worsen - Billing Disposition and Condition Condition: GOOD Disposition: Home
[2018-03-21 22:20] VITALS: BP 156/74
== END | disposition home or self-care (01) ==
LOC: ED 20:38
DX: J40 Bronchitis, not specified as acute or chronic (principal); Z88.5 Allergy status to narcotic agent; Z87.891 Personal history of nicotine dependence
CPT/HCPCS: 71046; 99281

== ENCOUNTER 2018-04-19 14:16 | Emergency (ER) | payer BC ==
[2018-04-19 14:24] VITALS: BP 137/87
--- NOTE | 2018-04-19 14:30 | UC ---
Respiratory Complaint HPI - HPI Summary HPI Summary: 52 y/o male presents to the urgent care c/o chest congestion w/ wheezing, w/ dry cough, nasal congestion and clear nasal discharge since last night. Pt states Hx of COPD and asthma. He has been using his inhaler w/o any improvement and now his chest feels tight. Pt denies REINA, fever, SOB, chest pain, abdominal pain, N/V/D. - History of Current Complaint Chief Complaint: UCRespiratory Stated Complaint: CHEST CONGESTION Time Seen by Provider: 04/19/18 14:28 Hx Obtained From: Patient Onset/Duration: Gradual Onset, Lasting Days - 1 day, Still Present, Worse Since - today Timing: Intermittent Episodes Severity Initially: Mild Severity Currently: Moderate Pain Intensity: 6 Pain Scale Used: 0-10 Numeric Character: Cough: Nonproductive Aggravating Factors: Recumbent Position Alleviating Factors: Bronchodilator Associated Signs And Symptoms: Positive: Dyspnea, Wheezing, Nasal Congestion, Sinus Discomfort - Risk Factors Pulmonary Embolism Risk Factors: Negative Cardiac Risk Factors: Negative Pseudomonas Risk Factors: Negative Tuberculosis Risk Factors: Negative - Allergies/Home Medications Allergies/Adverse Reactions: Allergies Allergy/AdvReac Type Severity Reaction Status Date / Time codeine Allergy Tachycardia Verified 04/19/18 14:24 PMH/Surg Hx/FS Hx/Imm Hx Previously Healthy: Yes Respiratory History: COPD, Asthma Other History Of: Negative For: HIV, Hepatitis B, Hepatitis C, Anticoagulant Therapy - Surgical History Surgical History: None - Family History Known Family History: Positive: Cardiac Disease, Hypertension, Diabetes, Respiratory Disease - mom Family History: non-contributory - Social History Occupation: Employed Full-time Lives: With Family Alcohol Use: None Substance Use Type: None Smoking Status (MU): Former Smoker Type: Cigarettes, Cigars Amount Used/How Often: 5-10 CIGS PER DAY/ 2 cigars per day Length of Time of Smoking/Using Tobacco: 43 yrs Have You Smoked in the Last Year: Yes When Did the Patient Quit Smoking/Using Tobacco: 05/19 Household Exposure Type: Cigarettes - Immunization History Most Recent Influenza Vaccination: no Review of Systems All Other Systems Reviewed And Are Negative: Yes Constitutional: Positive: Negative Skin: Positive: Negative Eyes: Positive: Negative ENT: Positive: Nasal Discharge - clear, Sinus Congestion Respiratory: Positive: Cough - dry, Other - wheezing Cardiovascular: Positive: Negative Gastrointestinal: Positive: Negative Genitourinary: Positive: Negative Motor: Positive: Negative Neurovascular: Positive: Negative Musculoskeletal: Positive: Negative Neurological: Positive: Negative Psychological: Positive: Negative Is Patient Immunocompromised?: No Physical Exam - Summary Physical Exam Summary: Vital Signs Reviewed: Yes General: well developed, well nourished male sitting in the examining table w/o any apparent distress Eyes: Positive: Conjunctiva Clear - PERRLA, EOMI, fundi grossly normal ENT: Positive: Normal ENT inspection, Hearing grossly normal, Pharynx normal, Nasal congestion - edematous and erythematous nasal mucosa, Nasal drainage - yellowish drainage, TMs normal. Negative: Tonsillar swelling, Tonsillar exudate Neck: Positive: Supple, Nontender, No Lymphadenopathy Respiratory: no orthopnea or dyspnea. Able to speak in full sentences, no retractions or accessory muscle use, no tripod position, stridor, or head bobbing. Positive breath sounds bilaterally. diffuse scattered wheezing, no rhonchi on b/L lungs, no crackles or rales. Cardiovascular: Positive: RRR, No Murmur, Pulses Normal, Brisk Capillary Refill Abdomen Description: Positive: Nontender, No Organomegaly, Soft. Negative: CVA Tenderness (R), CVA Tenderness (L) Bowel Sounds: Positive: Present Musculoskeletal Exam: Normal Musculoskeletal: Positive: Strength Intact, ROM Intact, No Edema Neurological Exam: Normal Psychological Exam: Normal Skin Exam: Normal Triage Information Reviewed: Yes Vital Signs: Initial Vital Signs Temp 98.1 F 04/19/18 14:22 Pulse 106 04/19/18 14:22 Resp 18 04/19/18 14:22 BP 137/87 04/19/18 14:22 Pulse Ox 99 04/19/18 14:22 Diagnostic Evaluation - Laboratory O2 Sat by Pulse Oximetry: 99 Respiratory Course/Dx - Course Course Of Treatment: 52 y/o male presents to the urgent care c/o chest congestion w/ wheezing, w/ dry cough, nasal congestion and clear nasal discharge since last night. Pt states Hx of COPD and asthma. He has been using his inhaler w/o any improvement and now his chest feels tight. Pt denies REINA, fever, SOB, chest pain, abdominal pain, N/V/D.Hx obtained. Pt w/ scattered wheezes on bilaterally lungs, good air entry B/L on examination. O2Sat:99%. Pt given Prednisone PO and Duoneb Treatment to alleviate symptoms. Pt tolerated well treatment and lungs improved,and wheezing resolved. Patient prescribed Prednisone taper dose, Albuterol inhaler and givne an areochamber to alleviate symptoms as directed below. The patient was recommended to increase fluid intake. Take medications as recommended. Pt advised to returned to the clinic or f/u w/ her PCP if symptoms do not improve. All D/C instructions explained. Patient understood and agree w/ plan of care. Pt left clinic hemodynamically stable , A&OX3 - Differential Dx/Diagnosis Differential Diagnosis/HQI/PQRI: Asthma, Bronchitis, Laryngitis, Sinusitis Provider Diagnosis: Asthma with acute exacerbation Discharge - Sign-Out/Discharge Documenting (check all that apply): Patient Departure - d/c home All imaging exams completed and their final reports reviewed: No Studies - Discharge Plan Condition: Stable Disposition: HOME Prescriptions: Albuterol HFA INHALER* [Ventolin HFA Inhaler*] 1 puff INH Q4H PRN #1 mdi PRN Reason: Wheezing predniSONE TAB* [Deltasone 20 MG TAB*] 20 mg PO DAILY #8 tab Patient Education Materials: Asthma (ED) Forms: *Work Release Referrals: Gissell Stone MD [Primary Care Provider] - 3 Days Additional Instructions: 1- Take Prednisone PO taper dose as directed starting tomorrow. First loading dose given today. 2-Use albuterol inhaler to alleviate SOB, and wheezing as directed . Increase fluid intake, rest and eat well. 3- If symptoms do not improve or worsen or your develop SOB with fever and severe wheezing please go immediately to the ER further evaluation and treatment. 4- F/u with your PCP in 3 days if symptoms are not improving for further management on your Asthma - Billing Disposition and Condition Condition: STABLE Disposition: Home
[2018-04-19] MEDS ORDERED: predniSONE TAB* 20 MG PO ONE (14:35)
[2018-04-19] MEDS ORDERED: Albuterol/Ipratropium NEB.SOL* Albuterol 2.5 MG/Ipratropium 0.5 MG 3 ML INH ONE (14:36)
== END 2018-04-19 15:10 | disposition home or self-care (01) ==
LOC: UCEAST 14:16
DX: J45.901 Unspecified asthma with (acute) exacerbation (principal); Z88.5 Allergy status to narcotic agent; Z87.891 Personal history of nicotine dependence
CPT/HCPCS: 99212; A9270-GY; G0463; J7512

== ENCOUNTER → 2018-04-21 16:28 | Emergency (ER) | payer BC ==
--- NOTE | 2018-04-21 18:41 | ED ---
Neck Pain - HPI Summary HPI Summary: Patient complains of right-sided neck pain and numbness and tingling in right arm after some heavy lifting yesterday. Denies any other pain, injury, symptoms. - History of Current Complaint Chief Complaint: EDNeckComplaint Stated Complaint: NECK PAIN Time Seen by Provider: 04/21/18 17:22 Hx Obtained From: Patient Onset/Duration Of Injury/Symptoms: Days Mechanism Of Injury: Other Timing: Constant Onset/Duration: Sudden Onset, Started days ago Severity Initially: Severe Severity Currently: Severe Pain Intensity: 9 Pain Scale Used: 0-10 Numeric Location: Discrete At: Character: Dull, Aching, Throbbing Aggravating Factors: Movement Alleviating Factors: Position Associated Signs & Symptoms: Positive: Negative - Allergies/Home Medications Allergies/Adverse Reactions: Allergies Allergy/AdvReac Type Severity Reaction Status Date / Time codeine Allergy Tachycardia Verified 04/21/18 16:36 PMH/Surg Hx/FS Hx/Imm Hx Endocrine/Hematology History: Denies: Hx Anticoagulant Therapy, Hx Diabetes, Hx Thyroid Disease Cardiovascular History: Denies: Hx Congestive Heart Failure, Hx Deep Vein Thrombosis, Hx Hypertension , Hx Myocardial Infarction, Hx Pacemaker/ICD Respiratory History: Reports: Hx Asthma Denies: Hx Chronic Obstructive Pulmonary Disease (COPD), Hx Lung Cancer, Hx Pneumonia, Hx Pulmonary Embolism GI History: Denies: Hx Gall Bladder Disease, Hx Gastrointestinal Bleed, Hx Ulcer, Hx Urosepsis History: Reports: Hx Dialysis Denies: Hx Kidney Stones, Hx Renal Disease Sensory History: Denies: Hx Hearing Aid Neurological History: Reports: Hx Migraine Denies: Hx Dementia, Hx Seizures, Hx Transient Ischemic Attacks (TIA) Psychiatric History: Denies: Hx Anxiety, Hx Depression, Hx Panic Disorder, Hx Schizophrenia, Hx Bipolar Disorder Infectious Disease History: No Infectious Disease History: Denies: Traveled Outside the [place] in Last 30 Days - Family History Known Family History: Positive: Cardiac Disease, Hypertension, Diabetes, Respiratory Disease - mom Family History: non-contributory - Social History Alcohol Use: None Substance Use Type: Reports: None Smoking Status (MU): Former Smoker Type: Cigarettes, Cigars Amount Used/How Often: 5-10 CIGS PER DAY/ 2 cigars per day Length of Time of Smoking/Using Tobacco: 43 yrs Have You Smoked in the Last Year: Yes Review of Systems Constitutional: Negative Eyes: Negative ENT: Negative Cardiovascular: Negative Respiratory: Negative Gastrointestinal: Negative Genitourinary: Negative Musculoskeletal: Other Skin: Negative Neurological: Negative Psychological: Normal All Other Systems Reviewed And Are Negative: Yes Physical Exam - Summary Physical Exam Summary: Tenderness with palpation of C-spine, right sternocleidomastoid muscle and right trapezius muscle. Triage Information Reviewed: Yes Vital Signs On Initial Exam: Initial Vitals Temp Pulse Resp BP Pulse Ox 98.2 F 81 16 131/89 98 04/21/18 16:34 04/21/18 16:34 04/21/18 16:34 04/21/18 16:34 04/21/18 16:34 Vital Signs Reviewed: Yes Appearance: Positive: Well-Appearing Skin: Positive: Warm Head/Face: Positive: Normal Head/Face Inspection Eyes: Positive: Normal Neck: Positive: Supple Respiratory/Lung Sounds: Positive: Clear to Auscultation Cardiovascular: Positive: Normal Abdomen Description: Positive: Nontender Musculoskeletal: Positive: Normal Neurological: Positive: Normal Psychiatric: Positive: Normal AVPU Assessment: Alert - [place] Coma Scale Best Eye Response: 4 - Spontaneous Best Motor Response: 6 - Obeys Commands Best Verbal Response: 5 - Oriented Coma Scale Total: 15 Diagnostics - Vital Signs Vital Signs Temp Pulse Resp BP Pulse Ox 04/21/18 16:34 98.2 F 81 16 131/89 98 - Laboratory Lab Statement: Any lab studies that have been ordered have been reviewed, and results considered in the medical decision making process. Neck Course/Dx - Course Course Of Treatment: Patient complains of right-sided neck pain and numbness and tingling in right arm after some heavy lifting yesterday. Denies any other pain, injury, symptoms. Physical exam:Patient complains of right-sided neck pain and numbness and tingling in right arm after some heavy lifting yesterday. Denies any other pain, injury, symptoms. CT cervical spine negative. Diagnosis muscle spasm. Rx for Flexeril. Advised to take ibuprofen as well. - Diagnoses Provider Diagnoses: Neck muscle strain Discharge - Sign-Out/Discharge Documenting (check all that apply): Patient Departure - Discharge Plan Condition: Stable Disposition: HOME Prescriptions: Cyclobenzaprine TAB* [Flexeril 10 MG TAB*] 10 mg PO TID PRN 3 Days #10 tab PRN Reason: Pain Patient Education Materials: Cervical Strain (ED), Neck Pain (ED) Referrals: Gissell Stone MD [Primary Care Provider] - Petrona Allison MD [Medical Doctor] - Additional Instructions: Take Flexeril as directed for muscle relaxation. Take ibuprofen for pain. May use heating pad. If your symptoms persist more than a few days follow-up with orthopedics Dr. Allison. Return to the ED for any new or worsening symptoms - Billing Disposition and Condition Condition: STABLE Disposition: Home
[2018-04-21 18:59] VITALS: BP 120/60
== END | disposition home or self-care (01) ==
LOC: ED 16:28
DX: S16.1XXA Strain of muscle, fascia and tendon at neck level, initial encounter (principal); X50.0XXA Overexertion from strenuous movement or load, initial encounter; Y92.9 Unspecified place or not applicable; J45.909 Unspecified asthma, uncomplicated; F17.210 Nicotine dependence, cigarettes, uncomplicated
CPT/HCPCS: 72125; 99281

== ENCOUNTER 2018-11-14 20:18 | Emergency (ER) | payer BC ==
[2018-11-14 20:53] VITALS: BP 129/70
[2018-11-14] MEDS ORDERED: Ketorolac *IM* INJ* 60 MG/2 ML VIAL IM ONE (21:20)
[2018-11-14] MEDS ORDERED: Ondansetron ODT TAB* 4 MG PO ONE (21:20)
--- NOTE | 2018-11-14 21:20 | UC ---
Headache HPI - HPI Summary HPI Summary: pt is c/o a "migraine". he has a long hx of the same. it began yesterday with some frontal throbbing and became constant today. + light/noise sensitivity. he ran out of his medication and his pcp won't refill it until he has another f/ u. this is typical for his REINA's. no hx injury, illness and not an abrupt or worst REINA. - History Of Current Complaint Chief Complaint: UCHeadache Stated Complaint: MIGRAINE Time Seen by Provider: 11/14/18 21:14 Hx Obtained From: Patient Onset/Duration: Gradual Onset Pain Intensity: 8 Timing: Constant Associated Signs And Symptoms: Negative: Dizziness, Nausea, Vomiting, Fever, Neck Pain, Neck Stiffness, Visual Changes - Allergies/Home Medications Allergies/Adverse Reactions: Allergies Allergy/AdvReac Type Severity Reaction Status Date / Time codeine Allergy Tachycardia Verified 11/14/18 20:49 Home Medications: Home Medications SUMAtriptan TAB* [Imitrex TAB*] 1 tab BID PRN 11/14/18 [History Confirmed ] PMH/Surg Hx/FS Hx/Imm Hx - Additional Past Medical History Additional PMH: Lazy eye OD Neurological History: Migraine Other History Of: Negative For: HIV, Hepatitis B, Hepatitis C, Anticoagulant Therapy - Surgical History Surgical History: None - Family History Known Family History: Positive: Cardiac Disease, Hypertension, Diabetes, Respiratory Disease - mom Family History: non-contributory - Social History Occupation: Employed Full-time Alcohol Use: None Substance Use Type: None Smoking Status (MU): Former Smoker Type: Cigarettes, Cigars Amount Used/How Often: 5-10 CIGS PER DAY/ 2 cigars per day Length of Time of Smoking/Using Tobacco: 43 yrs Have You Smoked in the Last Year: Yes When Did the Patient Quit Smoking/Using Tobacco: 05/19 Household Exposure Type: Cigarettes - Immunization History Most Recent Influenza Vaccination: no Review of Systems All Other Systems Reviewed And Are Negative: Yes Constitutional: Negative: Fever, Chills Eyes: Positive: Photophobia. Negative: Blurred Vision, Diplopia, Drainage, Eye Redness Motor: Negative: Weakness Neurological: Positive: Headache. Negative: Weakness, Paresthesia, Numbness Physical Exam Triage Information Reviewed: Yes Appearance: Well-Appearing Vital Signs: Initial Vital Signs Temp 98.3 F 11/14/18 20:50 Pulse 89 11/14/18 20:50 Resp 16 11/14/18 20:50 BP 129/70 11/14/18 20:50 Pulse Ox 98 11/14/18 20:50 Vital Signs Reviewed: Yes Eyes: Positive: Other: - OD with deviation R(chronic). PERRL, EOMI. Conjunctiva clear. ENT: Positive: Pharynx normal, TMs normal. Negative: Nasal congestion, Nasal drainage Neck: Positive: Supple, Nontender, No Lymphadenopathy. Negative: Nuchal Rigidity Respiratory: Positive: Lungs clear, Normal breath sounds Cardiovascular: Positive: RRR, No Murmur Abdomen Description: Positive: Nontender Bowel Sounds: Positive: Present Musculoskeletal: Positive: ROM Intact Neurological: Positive: Other: - A&O x3. CN grossly intact. 5/5 strenght, 2+ reflexes and sensation intactx4. Steady gait. Psychological: Positive: Age Appropriate Behavior Skin Exam: Normal Headache Course/Dx - Differential Dx/Diagnosis Differential Diagnosis/HQI/PQRI: Other - no hx injury or fever. not an abrupt/ worst REINA. typical of pt's migraines. Provider Diagnosis: Migraine Discharge - Sign-Out/Discharge Documenting (check all that apply): Patient Departure All imaging exams completed and their final reports reviewed: No Studies - Discharge Plan Condition: Stable Disposition: HOME Patient Education Materials: Migraine Headache (ED) Forms: *Work Release Referrals: Gissell Stone MD [Primary Care Provider] - As Soon As Possible - Billing Disposition and Condition Condition: STABLE Disposition: Home
== END 2018-11-14 22:01 | disposition home or self-care (01) ==
LOC: UCCORT 20:18
DX: G43.909 Migraine, unspecified, not intractable, without status migrainosus (principal); Z87.891 Personal history of nicotine dependence
CPT/HCPCS: 96372; 99212; A9270-GY; G0463; J1885

== ENCOUNTER 2019-07-02 15:17 | Emergency (ER) | payer SELFPAY ==
[2019-07-02] MEDS ORDERED: Lidocaine PATCH 5%* 1 PATCH TRANSDERM ONE (16:49)
[2019-07-02] MEDS ORDERED: Ketorolac INJ* 30 MG/ML 1 ML VIAL IM ONE (16:49)
--- NOTE | 2019-07-02 17:07 | ED ---
Neck Pain - HPI Summary HPI Summary: 53-year-old male presents with neck pain today. He was pushing carts at work when he felt pain in his neck. He states pain is in the center of his neck. He states he has some numbness on the area. Pain radiates to the shoulder. No numb or tingling into the arm. No weakness. He denies any history of neck pain. Has no medical conditions. Hasn't taking anything for his pain. he denies any fever. no chest pain or SOB. no loss of bowel or bladder. no saddle anaesthesia. - History of Current Complaint Chief Complaint: EDNeckComplaint Stated Complaint: NECK INJURY PER PT Time Seen by Provider: 07/02/19 16:36 Pain Intensity: 7 - Allergies/Home Medications Allergies/Adverse Reactions: Allergies Allergy/AdvReac Type Severity Reaction Status Date / Time codeine Allergy Tachycardia Verified 07/02/19 15:31 Home Medications: Home Medications SUMAtriptan TAB* [Imitrex TAB*] 1 tab BID PRN 11/14/18 [History Confirmed ] Cyclobenzaprine TAB* [Flexeril 10 MG TAB*] 10 mg PO TID PRN #15 tab 07/02/19 [Rx ] PMH/Surg Hx/FS Hx/Imm Hx Endocrine/Hematology History: Denies: Hx Anticoagulant Therapy, Hx Diabetes, Hx Thyroid Disease Cardiovascular History: Denies: Hx Congestive Heart Failure, Hx Deep Vein Thrombosis, Hx Hypertension , Hx Myocardial Infarction, Hx Pacemaker/ICD Respiratory History: Reports: Hx Asthma Denies: Hx Chronic Obstructive Pulmonary Disease (COPD), Hx Lung Cancer, Hx Pneumonia, Hx Pulmonary Embolism GI History: Denies: Hx Gall Bladder Disease, Hx Gastrointestinal Bleed, Hx Ulcer, Hx Urosepsis History: Reports: Hx Dialysis Denies: Hx Kidney Stones, Hx Renal Disease Sensory History: Denies: Hx Hearing Aid Neurological History: Reports: Hx Migraine Denies: Hx Dementia, Hx Seizures, Hx Transient Ischemic Attacks (TIA) Psychiatric History: Denies: Hx Anxiety, Hx Depression, Hx Panic Disorder, Hx Schizophrenia, Hx Bipolar Disorder Infectious Disease History: No Infectious Disease History: Denies: Traveled Outside the [place] in Last 30 Days - Family History Known Family History: Positive: Cardiac Disease, Hypertension, Diabetes, Respiratory Disease - mom Family History: non-contributory - Social History Alcohol Use: None Substance Use Type: Reports: None Smoking Status (MU): Current Every Day Smoker Type: Cigarettes, Cigars Amount Used/How Often: 5-10 CIGS PER DAY/ 2 cigars per day Length of Time of Smoking/Using Tobacco: 43 yrs Have You Smoked in the Last Year: Yes Review of Systems Negative: Fever Negative: Chest Pain Negative: Shortness Of Breath Positive: Myalgia - neck pain All Other Systems Reviewed And Are Negative: Yes Physical Exam Triage Information Reviewed: Yes Vital Signs On Initial Exam: Initial Vitals Temp Pulse Resp BP Pulse Ox 98.2 F 70 16 151/82 98 07/02/19 15:27 07/02/19 15:27 07/02/19 15:27 07/02/19 15:27 07/02/19 15:27 Vital Signs Reviewed: Yes Appearance: Positive: Well-Appearing Skin: Positive: Warm, Dry Head/Face: Positive: Normal Head/Face Inspection Eyes: Positive: Normal, EOMI, MATTEO, Conjunctiva Clear ENT: Positive: Pharynx normal, TMs normal Neck: Positive: Other: - tenderness neck, full ROM neck with pain Respiratory/Lung Sounds: Positive: Clear to Auscultation, Breath Sounds Present Cardiovascular: Positive: Normal, RRR Musculoskeletal: Positive: Normal Neurological: Positive: Normal Psychiatric: Positive: Normal Procedures - Sedation Patient Received Moderate/Deep Sedation with Procedure: No Diagnostics - Vital Signs Vital Signs Temp Pulse Resp BP Pulse Ox 07/02/19 15:27 98.2 F 70 16 151/82 98 - Laboratory Lab Statement: Any lab studies that have been ordered have been reviewed, and results considered in the medical decision making process. - Radiology neck Radiology Interpretation Completed By: Radiologist Summary of Radiographic Findings: IMPRESSION: Degenerative changes of the cervical spine including reversal of the normal cervical lordosis with an appearance similar to the April 21, 2018 CT of the cervical spine. Re-Evaluation - Re-Evaluation First Eval Re-Evaluation Time: 17:56 Change: Improved Comment: pain improved Neck Course/Dx - Course Course Of Treatment: 53-year-old male presents with neck pain today. He was pushing carts at work when he felt pain in his neck. He states pain is in the center of his neck. He states he has some numbness on the area. Pain radiates to the shoulder. No numb or tingling into the arm. No weakness. He denies any history of neck pain. Has no medical conditions. Hasn't taking anything for his pain. On exam tenderness C5 through C7. Neurovascular intact. X-ray shows no fracture. will treat with muscle relaxers as needed. discussed patient wants to be on light duty. gave referral to occupational health. patient understand and agrees with plan. - Diagnoses Differential Dx/HQI/PQRI: Positive: Cervical Fracture, Sprain, Strain Provider Diagnoses: Neck pain Discharge ED - Sign-Out/Discharge Documenting (check all that apply): Patient Departure - Discharge Plan Condition: Good Disposition: HOME Prescriptions: Cyclobenzaprine TAB* [Flexeril 10 MG TAB*] 10 mg PO TID PRN #15 tab PRN Reason: Pain - Moderate Patient Education Materials: Neck Pain (ED) Forms: *Work Release Referrals: Zak Strauss MD [Medical Doctor] - Gissell Stone MD [Primary Care Provider] - Additional Instructions: Take muscle relaxers three times a day Use ibuprofen or Tylenol for pain every 6 hours ice/heat area, move as much as possible Follow up with occupational health within 5 days Return to ED if develop any new or worsening symptoms - Billing Disposition and Condition Condition: GOOD Disposition: Home - Attestation Statements Provider Attestation: I was available for consult. This patient was seen by the MARY. The patient was not presented to, seen by, or examined by me. Karthik Talavera MD
[2019-07-02 18:09] VITALS: BP 148/72
[2019-07-02] MEDS ORDERED: Lidocaine Patch REMOVE* 1 NOTE MISC SCH (21:00)
== END 2019-07-02 18:08 | disposition home or self-care (01) ==
LOC: ED 15:17
DX: M54.2 Cervicalgia (principal); Z88.5 Allergy status to narcotic agent; F17.210 Nicotine dependence, cigarettes, uncomplicated
CPT/HCPCS: 72050; 96372; 99282; A9270-GY; J1885